=== PATIENT | male | born 1950 | race Caucasian/White ===

== ENCOUNTER → 2020-02-24 14:43 | Outpatient (BNVA) | payer MEDICARE, SELFPAY | PROVIDERS: PCP Internal Medicine; Visit Provider Physician Assistant Medical | DX: Z76.89 Persons encountering health services in other specified circumstances (principal) | CPT/HCPCS: G0296 ==

== ENCOUNTER 2020-03-02 06:10 | Emergency (ER) | payer MEDICARE, SELFPAY ==
[2020-03-02 06:16] VITALS: BP 155/68; PULSE 70; RESP 17; TEMP 36.9; O2SAT 97; BMI 28.2
[2020-03-02] MEDS: Famotidine/PF 20 MG/2 ML VIAL IVPUSH (06:25)
[2020-03-02] MEDS: methylPREDNISolone Sod Succ/PF 125 MG/2 ML VIAL IVPUSH (06:25)
[2020-03-02 06:28] VITALS: BP 157/65; PULSE 86; RESP 16; O2SAT 98
--- NOTE | 2020-03-02 06:28 | PC.NURSE ---
PT RECEIVED 0.3 EPI & 25MG BENADRYL W/EMS
--- NOTE | 2020-03-02 06:51 | ED_ITS ---
HPI - Allergic Reaction General Chief complaint: Allergic Reaction Stated complaint: med reaction Time Seen by Provider: 03/02/20 06:17 Source: patient and EMS Mode of arrival: EMS Limitations: no limitations History of Present Illness HPI narrative: took first does of lisinopril yesterday - developed worsening tongue swelling, given epi and benadryl by EMS, on arrival to ED overnight attending lory romo MD complaint: other (tongue swelling) Onset (ago): hour(s) (started at 4am last night (started 9pm but he was able to go to sleep)) Exposure: medication Symptoms: tongue swelling Severity: moderate Treatment prior to arrival: benadryl and epinephrine Previous Allergic Reaction History: none Related Data Previous Rx's Medication Instructions Recorded prednisone 40 mg PO DAILY 5 Days #10 tab 03/02/20 Allergies Allergy/AdvReac Type Severity Reaction Status Date / Time lisinopril Allergy Severe Angioedema Verified 03/02/20 06:17 Review of Systems Review of Systems: Constitutional : No Fever, No Chills ENT/Mouth : positive oral swelling, No Hoarseness, No Swallowing Difficulty Eyes: No Eye Pain, No Swelling, No Redness Cardiovascular : No Chest Pain, No SOB Respiratory : No Cough, No Sputum, No Wheezing, No Smoke Exposure, No Dyspnea Gastrointestinal : No Nausea, No Vomiting, No Diarrhea, No abdominal Pain Genitourinary : No Dysuria, No Urinary Frequency, No Hematuria Musculoskeletal : No joint pain, No Myalgias, No Joint Swelling Skin : No Skin Lesions, no rash Neuro : No Weakness, No Numbness, No Headache Psych : No Anxiety/Panic, No Depression Heme/Lymph: No Bruising, No Lymphadenopathy Endocrine : No Polyuria, No Polydipsia All other systems reviewed and are negative [facility] Past Medical History Attestation statement: The following information was validated with the patient. Medical History Tubular adenoma of colon Surgical History History of colonoscopy History of myringotomy Social History Social History Alcohol intake: current Alcohol intake frequency: 0-2 drinks per day Smoking Status: Current some day smoker Tobacco Type: Cigar and Cigarette Cigarettes Per Day: 4 Years Smoked: 52 Use of substances other than those prescribed or required for medical reasons: No Advance Directives: No Physical Exam Vital Signs: Vital Signs: Last Vital Signs Temp 98.7 F 03/02/20 08:42 Pulse 81 03/02/20 09:18 Resp 12 03/02/20 09:18 BP 120/52 L 03/02/20 09:18 Pulse Ox 95 03/02/20 09:18 Body Mass Index 28.2 Appearance: Alert. Oriented X3. Mild acute distress. Eyes: Pupils equal, round and reactive to light. ENT: Moderate tongue swelilng L side with elevation - no posterior oropharynx swelling on either side, no R side swelling Neck: Normal inspection. Neck supple. CVS: Normal heart rate and rhythm. Pulses normal. Respiratory: No respiratory distress. Breath sounds normal. Abdomen: Soft and non-tender. Skin: Skin warm and dry. Normal skin color. Normal skin turgor. Extremities: No lower extremity edema. No calf ttp Neuro: Oriented X 3. No motor deficit. No sensory deficit. Course Course Course Narrative: 708am patient feels there is no worsening at this time. patient improving at this time. feels better, FFP infused patient improved, observed, some swelling but markedly better, feels stable to go home MDM - Allergic Reaction MDM Narrative Medical decision making narrative: 69yo male with new Rx of lisinopril - has tongue angioedema given steroids, pepcid, epi, benadryl - no progression at this time, voice improving will observe closelyl and attempt FFP administration or possibly tranexamic acid the patient is aware of risks of possible intubation if this worsens Lab Data Labs: Lab Results 03/02/20 Range/Units 06:53 Blood Type O Positive Antibody Screen NEGATIVE Critical Care Time Critical Care Time Critical Care Time: Yes Total Critical Care Time: 60 Attestation: I attest to this time spent taking care of the patient Discharge Plan Discharge Clinical Impression: Angioedema Qualifiers: Encounter type: initial encounter Qualified Code(s): T78.3XXA - Angioneurotic edema, initial encounter Patient Disposition: Home, Self-Care Instructions: Angioedema (ED) Additional Instructions: STOP TAKING THE NEW MEDICATIONS, IF THE SWELLING WORSENS CALL 911 IMMEDIATELY Prescriptions: New prednisone 20 mg tablet 40 mg PO DAILY 5 Days Qty: 10 RF: 0 Stand Alone Forms: Work/School Release Interventions: ED Discharge Assessment Last Done: 03/02/20 12:06 Discharge Date/Time: 03/02/20 12:07
--- NOTE | 2020-03-02 07:12 | PC.NURSE ---
report taken from rick govea pt here for allergic reaction r/t lisinopril use. l side tongue swelling greater than r. pt sts not getting worse, but not getting better . ivs patent. intubation materials at bedside for possible need to intubate. will hold off on tubation, plan for ffp infusion. wclinda.
--- NOTE | 2020-03-02 07:32 | PC.NURSE ---
dr whitmore at bedside to complete consent for blood products. ffp ready in lab.
[2020-03-02 07:50] VITALS: BP 164/56; PULSE 82; RESP 16; TEMP 37.2
--- NOTE | 2020-03-02 08:04 | PC.NURSE ---
[facility] STARTED AND INFUSING, NO NOTED REACTION FROM PT. VSS. PT STS SWELLING FEELS LIKE ITS GOING DOWN . PT CONVERSING W THIS RN EVEN/UNLABORED BREATHING SPEAKING IN FULL CLEAR SENTENCES.
[2020-03-02 08:07] VITALS: BP 150/57; PULSE 80; RESP 16; TEMP 36.8
[2020-03-02 08:42] VITALS: BP 136/53; PULSE 69; RESP 16; TEMP 37.1
--- NOTE | 2020-03-02 08:43 | PC.NURSE ---
[facility] FINISHED TRANSFUSING, PROVIDER WOULD LIKE TO OBSERVE PT FOR FEW HOURS TO ENSURE NO REPEAT REACTION AND PLAN FOR DISCHARGE HOME IF FEELING BETTER.
[2020-03-02 09:18] VITALS: BP 120/52; PULSE 81; RESP 12; O2SAT 95
== END 2020-03-02 12:07 | disposition home or self-care (01) ==
PROVIDERS: Emergency Provider Emergency Medicine; PCP Internal Medicine
DX: T78.3XXA Angioneurotic edema, initial encounter (principal); T46.4X5A Adverse effect of angiotensin-converting-enzyme inhibitors, initial encounter; Y92.9 Unspecified place or not applicable
CPT/HCPCS: 36430; 86850; 86900; 86901; 96374; 96375; 99284; 99291; J2930; P9017

== ENCOUNTER 2020-05-10 11:16 | Outpatient (REF) | payer MEDICARE, SELFPAY ==
--- NOTE | ~2020-05-10 | CT_ITS ---
EXAMINATION: CT CHEST SCREENING CLINICAL INFORMATION: Nicotine dependence COMPARISON: Chest x-ray 06/11/2017 TECHNIQUE: Multidetector volumetric CT imaging of the chest is performed without contrast using low dose technique. Additional 2D coronal and sagittal reformatted images and axial 3D maximum intensity projection (MIP) images are generated on the CT workstation. This CT examination was performed using dose optimization techniques as appropriate, variously including the following: *Automated exposure control *Adjustment of mA and/or kV according to patient size (this includes techniques or standardized protocols for targeted exams where dose is matched to indication/reason for exam; i.e. extremities or head) *Use of iterative reconstruction technique DLP: 79 mGy-cm FINDINGS: LUNGS: The lungs are well expanded and clear of acute pneumonic process. There is a 1 mm calcified nodule left lower lobe, axial image 37/4. There are no pulmonary nodules, masses or ground-glass density. MEDIASTINUM: The thyroid lobes are symmetrical and normal. The central trachea and the bronchi widely patent. Heart size and the great vessels are normal caliber. There are left coronary artery calcifications present. No pericardial effusion. There is no abnormal size lymph nodes. PLEURA: There is no pleural effusion, thickening or calcification. AXILLA: There are small shotty lymph nodes in the axilla. The chest wall is unremarkable. UPPER ABDOMEN: There are several low-density lesions in the left greater than right hepatic lobe consistent with simple cysts. There is no intrahepatic ductal dilatation. OSSEOUS STRUCTURES: There is moderate ventral spondylosis mid dorsal spine. No lytic process. CT/CT lung screening IMPRESSION: Punctate calcified left lung nodule. Otherwise unremarkable CT chest exam. Several hepatic cysts. ASSESSMENT: Lung-RADS category 2: Benign RECOMMENDATION: Low dose annual CT chest.
== END 2020-05-10 11:17 | disposition home or self-care (01) ==
LOC: HO.CT 11:16
PROVIDERS: Visit Provider Physician Assistant Medical
DX: Z12.2 Encounter for screening for malignant neoplasm of respiratory organs (principal); F17.210 Nicotine dependence, cigarettes, uncomplicated
CPT/HCPCS: 71271

== ENCOUNTER 2021-11-12 09:19 | Outpatient (REF) | payer MEDICARE, SELFPAY ==
--- NOTE | ~2021-11-12 | CT_ITS ---
EXAMINATION: CT CHEST SCREENING CLINICAL INFORMATION: Current smoker. 20-qdec-nwwn history. COMPARISON: Previous chest CT April 2020. TECHNIQUE: Multidetector volumetric CT imaging of the chest is performed without contrast using low dose technique. Additional 2D coronal and sagittal reformatted images and axial 3D maximum intensity projection (MIP) images are generated on the CT workstation. This CT examination was performed using dose optimization techniques as appropriate, variously including the following: *Automated exposure control *Adjustment of mA and/or kV according to patient size (this includes techniques or standardized protocols for targeted exams where dose is matched to indication/reason for exam; i.e. extremities or head) *Use of iterative reconstruction technique DLP: 63 mGy-cm. FINDINGS: LUNGS: There is evidence of emphysema. There is biapical pleural parenchymal scarring. There are small pulmonary nodules that are stable. Largest pulmonary nodule is a 2 mm calcified right upper lobe nodule axial image 161 series 5. There are increased peripheral reticular markings and increased peripheral or subpleural attenuation questionable for residual lung disease. This appears increased from previous exam. No endobronchial or endotracheal lesion. MEDIASTINUM: Small mediastinal lymph nodes. Stable. Normal heart size. Mild coronary artery calcification. No pericardial effusion. Normal caliber thoracic aorta. CORONARY ARTERY CALCIFICATION: Mild. PLEURA: There is no pleural effusion. No pleural mass or thickening. AXILLA: No lymphadenopathy. UPPER ABDOMEN: Stable low-attenuation liver lesions probably representing cysts. OSSEOUS STRUCTURES: Degenerative changes of the spine. CT/CT lung screening IMPRESSION: Emphysema. Probable increasing interstitial lung disease. Stable biapical pleural and parenchymal scarring. Stable multiple pulmonary nodules or micronodules. Mild coronary artery calcification. ASSESSMENT: Lung-RADS category 2: Benign. RECOMMENDATION: Annual low-dose chest CT follow-up recommended.
== END 2021-11-12 09:20 | disposition home or self-care (01) ==
LOC: HO.CT 09:19
PROVIDERS: Visit Provider Physician Assistant Medical
DX: Z12.2 Encounter for screening for malignant neoplasm of respiratory organs (principal); F17.210 Nicotine dependence, cigarettes, uncomplicated
CPT/HCPCS: 71271

== ENCOUNTER 2023-02-12 07:47 | Outpatient (REF) | payer MEDICARE, SELFPAY | END 2023-02-12 07:48 | disposition home or self-care (01) | LOC: HO.CT 07:47 | PROVIDERS: Visit Provider Physician Assistant Medical | DX: Z12.2 Encounter for screening for malignant neoplasm of respiratory organs (principal); F17.210 Nicotine dependence, cigarettes, uncomplicated | CPT/HCPCS: 71271 ==